=== PATIENT | female | born 1990 ===

== ENCOUNTER 2018-02-17 14:31 | Observation (INO) ==
[2018-02-17] MEDS ORDERED: ONDANSETRON 4 MG/2 ML VIAL IV PRN (20:09)
[2018-02-17] MEDS ORDERED: PROMETHAZINE 25 MG/1 ML VIAL IM PRN (20:09)
[2018-02-17] MEDS ORDERED: ACETAMINOPHEN 325 MG TABLET PO PRN (20:09)
[2018-02-17] MEDS: MORPHINE 4 MG/1 ML VIAL IV PRN (21:03)
[2018-02-17] MEDS: LACTATED RINGERS 1,000 ML IV SCH (21:07)
[2018-02-17] MEDS: PIPERACILLIN/TAZOBACTAM 3,375 MG in SODIUM CHLORIDE 0.9% 100 ML IV SCH (21:15)
[2018-02-18] MEDS: LACTATED RINGERS 1,000 ML IV SCH ×2 (04:12→12:40)
[2018-02-18] MEDS: MORPHINE 4 MG/1 ML VIAL IV PRN (06:16)
[2018-02-18] MEDS: PIPERACILLIN/TAZOBACTAM 3,375 MG in SODIUM CHLORIDE 0.9% 100 ML IV SCH (06:30)
[2018-02-18] MEDS ORDERED: LIDOCAINE 1%/EPI INJ 20 ML VIAL ONE (06:34)
[2018-02-18] MEDS ORDERED: TISSUE ADHESIVE 1 EACH APPLICATOR TOP ONE (06:34)
[2018-02-18] MEDS ORDERED: BUPIVACAINE MPF 0.25% /EPI 30 ML VIAL ONE (06:34)
[2018-02-18 06:50] LABS: Basophils % 0.1 % (0.0-0.8); Eosinophils # 0.2 10*3/uL (0.0-0.87); Eosinophils % 2.2 % (0.00-10.9); Hematocrit 39.7 VOL% (35.7-47.0); Hemoglobin 13.4 GM/DL (12.0-16.0); Immature Granulocytes % 0.5 %; Immature Granulocytes Absolute 0.05 #; Lymphocytes # 3.1 10*3/uL (1.4-4.0); Lymphocytes % 33.1 % (21.3-54.2); Mean Corpuscular HGB Conc 33.8 GM/DL (32-36); Mean Corpuscular Hemoglobin 29 PG (27-34); Mean Corpuscular Volume 85.9 FL (87-102); Mean Platelet Volume 10.7 FL (9.6-12.0); Monocytes # 0.8 10*3/uL (0.11-0.8); Monocytes % 8.9 % (1.7-12.7); Neutrophils # 5.1 10*3/uL (1.4-7.4); Neutrophils % 55.2 % (38.7-73.9); Platelet Count 209 T/CUMM (130-400); Red Blood Count 4.62 MC/CUMM (3.8-5.5); Red Cell Distribution Width 12.9 % (9.3-17.3); White Blood Count 9.3 T/CUMM (4-12)
[2018-02-18] MEDS ORDERED: cefOXitin 2,000 MG in SYRINGE 1 EACH IV ONE (07:00)
[2018-02-18 07:21] LABS: Calcium 8.5 MG/DL (8.5-10.1); Osmolality,Calculated 277.4 MOS/KG (273-304); Potassium 3.6 MMOL/L (3.5-5.1)
[2018-02-18] MEDS ORDERED: ONDANSETRON 4 MG/2 ML VIAL ONE (08:11)
[2018-02-18] MEDS ORDERED: MIDAZOLAM 2 MG/2 ML VIAL ONE (08:11)
[2018-02-18] MEDS ORDERED: DEXAMETHASONE 10 MG/1 ML VIAL ONE (08:11)
[2018-02-18] MEDS ORDERED: PROPOFOL 200 MG/20 ML VIAL IV ONE (08:11)
[2018-02-18] MEDS ORDERED: KETOROLAC 30 MG/1 ML VIAL ONE (08:11)
[2018-02-18] MEDS ORDERED: fentaNYL 100 MCG/2 ML VIAL ONE (08:11)
[2018-02-18] MEDS ORDERED: GLYCOPYRROLATE 0.4 MG/2 ML VIAL ONE (08:11)
[2018-02-18] MEDS ORDERED: ACETAMINOPHEN 1,000 MG/100 ML VIAL IV ONE (08:11)
[2018-02-18] MEDS ORDERED: ONDANSETRON 4 MG/2 ML VIAL IV PRN (08:12)
[2018-02-18] MEDS ORDERED: NEOSTIGMINE 10 MG/10 ML VIAL ONE (08:12)
[2018-02-18] MEDS ORDERED: ROCURONIUM 100 MG/10 ML VIAL IV ONE (08:12)
[2018-02-18] MEDS ORDERED: MORPHINE 10 MG/1 ML VIAL IV PRN (08:12)
[2018-02-18] MEDS ORDERED: PANTOPRAZOLE 40 MG TABLET PO SCH (09:00)
[2018-02-18 16:15] VITALS: BP 127/60
[2018-02-18] MEDS ORDERED: ENOXAPARIN 40 MG/0.4 ML SYRINGE SUBCUT SCH (21:00)
== END 2018-02-18 17:15 | disposition home or self-care (01) ==
LOC: N.3E 16:26 → INTOOBSV 16:26
PROVIDERS: ADMIT Surgery; ATTEND Surgery